=== PATIENT | male | born 1995 | race Caucasian/White ===

== ENCOUNTER → 2016-12-21 | Outpatient (CLI) | payer BC ==
--- NOTE | 2016-12-21 12:59 | DIAGNOSTIC IMAGING REPORT ---
TESTICULAR ULTRASOUND HISTORY: I86.1 [id number] COMPARISON: None. FINDINGS: Right testis: 4.0 x 2.8 x 1.9 cm. There are no intratesticular masses. Normal color flow. No hydrocele. The epididymis is unremarkable. Left testis: 4.8 x 2.7 x 1.8 cm. There are no intratesticular masses. Normal color flow. No hydrocele. The epididymis is unremarkable. No significant right varicocele. There is a small left-sided varicocele with the venous structures dilated up to 4 mm. IMPRESSION: 1. Normal bilateral testes. 2. Small left-sided varicocele. Electronically signed by: Thomas Diaz M.D. 12/21/2016 12:57 PM Dictated Date/Time: 12/21/2016 12:54 PM
== END | disposition home or self-care (01) ==
LOC: C.ULTR 11:47
PROVIDERS: ATTEND Urology
DX: I86.1 Scrotal varices (principal)